=== PATIENT | female | born 1985 | race Caucasian/White ===

== ENCOUNTER 2016-04-26 06:41 | Day surgery (SDC) | payer OTHER ==
[~2016-04-26 06:41] MED LIST: ACETAMINOPHEN 500 MG TABLET PO PRN; HYDROmorphone HCL 2 MG/ML VIAL IV PRN; MAG HYDROX/ALUMINUM HYD/SIMETH 30 ML UDC PO PRN; MAGNESIUM HYDROXIDE 30 ML UDC PO PRN; ONDANSETRON HCL/PF 2 MG/ML VIAL IV PRN; PROMETHAZINE HCL 25 MG in DEXTROSE 5 % IN WATER 50 ML IV PRN; RINGERS SOLUTION,LACTATED 1,000 ML IV PRN; ROPIVACAINE HCL/PF 40 MG in NORMAL SALINE 16 ML IJ PRN; ZOLPIDEM TARTRATE 5 MG TABLET PO PRN; ceFAZolin SODIUM 1 GM VIAL IV PRN; diphenhydrAMINE HCL 50 MG/ML VIAL IV PRN; oxyCODONE HCL/ACETAMINOPHEN 1 TAB TABLET PO PRN
--- OUTSIDE RECORDS SUMMARY | 2016-04-26 06:44 | XMS REPORT | Continuity of Care Document ---
:1985 Author Organization [facility] ([facility]) [place] [address] Phone [phone] Care Team Providers Name Role Phone Provider, No-Primary Care Primary Care Provider Unavailable Source Comments This disclosure is being made pursuant to the Care Everywhere program, applicable federal and state laws, and may not contain all informaitonavailable regarding this patient.[facility] ([facility]) Active Allergies and Adverse Reactions Allergen Noted Date Severity Reactions Comments Codeine 11/26/2012 Nausea & Vomiting Penicillins 11/26/2012 Anaphylactic Shock Sulfa (Sulfonamide Antibiotics) 11/26/2012 Urticaria (Hives) Tramadol 06/09/2014 Seizure Current Medications Prescription Sig. Disp. Refills Start Date End Date Status naproxen 500 mg tablet Take 500 mg by mouth Active 2 times daily with meals. Active Problems No known active problems Social History Tobacco Use Types Packs/Day Years Used Date Light Tobacco Smoker 15 Tobacco Cessation:Ready to Quit: Yes; Counseling Given: Yes Comments: Alcohol Use Drinks/Week oz/Week Comments Yes Last Filed Vital Signs Vital Sign Reading Time Taken Blood Pressure 116/69 06/09/2014 3:58 PM CDT Pulse 76 06/09/2014 3:58 PM CDT Temperature 37 C (98.6 F) 06/09/2014 3:58 PM CDT Respiratory Rate 16 11/25/2012 11:31 PM CDT Height 1.689 m (5' 6.5") 06/09/2014 3:58 PM CDT Weight 92.08 kg (203 lb) 06/09/2014 3:58 PM CDT Body Mass Index 32.28 06/09/2014 3:58 PM CDT Oxygen Saturation 100% 11/25/2012 11:31 PM CDT Plan of Care Health Maintenance Due Date Last Done Comments Hepatitis B Vaccine (1 of 3 - Primary 1984 Series) Tdap Vaccine 05/25/1995 Lipid Disorder Screening 2002 MMR Vaccine 2002 Td Vaccine 2002 Varicella Vaccine (1 of 2 - Adult - No 2002 Evidence of Immunity) Pneumococcal Vaccine (1 of 1 - PPSV23) 05/25/2003 Cervical Cancer Screening 2014 08/13/2003, 11/27/2002 Influenza Vaccine: Seasonal (#1) 10/10/2015 Results from Last 3 Months Not on file
[2016-04-26] MEDS ORDERED: ALBUTEROL SULFATE 2.5 MG/0.5 ML VIAL.NEB IH ONE (07:27)
[2016-04-26] MEDS ORDERED: DEXTROSE 5%-0.5 NORMAL SALINE 1,000 ML IV ONE ×2 (08:15→09:40)
[2016-04-26] MEDS ORDERED: BUPIVACAINE HCL/EPINEPHRINE 50 ML VIAL IJ ONE (08:40)
[2016-04-26] MEDS ORDERED: diphenhydrAMINE HCL 50 MG/ML VIAL IV PRN (11:10)
[2016-04-26] MEDS ORDERED: NALOXONE HCL 0.4 MG/ML VIAL IV PRN (11:10)
[2016-04-26] MEDS ORDERED: HYDROmorphone HCL 2 MG/ML VIAL IV PRN (11:10)
[2016-04-26] MEDS ORDERED: PROMETHAZINE HCL 12.5 MG in DEXTROSE 5 % IN WATER 50 ML IV PRN ×2 (11:10)
[2016-04-26] MEDS ORDERED: ONDANSETRON HCL/PF 2 MG/ML VIAL IV PRN (11:10)
--- NOTE | 2016-04-26 11:26 | OR ---
Operative Report - Dictated Report Narrative: Date: 04/26/2016 Physician: Kayden Clarke M.D. Fiberglass Tube Molder: Raoul Mancera PA-C Preoperative diagnosis: Left Knee chronic patellar instability Postoperative diagnosis: Left knee chronic patellar instability Procedure: Left knee arthroscopy with chondroplasty of the lateral femoral condyle, medial patellofemoral ligament reconstruction with semi-tendinosis allograft Anesthesia: Spinal Plus local Complications: None Estimated blood loss: Minimal Tourniquet time: None Specimens: None Retained implants: Q-fix 1.8 mm all suture anchors 2, Mancera and nephew 7 x 25 mm PEEK interference screw Drains: None Indications: Bessie Is a 30 year-old email who has been followed in my clinic with complaints of knee pain consistent with suspected chronic patellar instability. Physical exam and diagnostic imaging were consistent with these complaints and concern for chronic lateral instability of the patella. Conservative measures have failed including, but not limited to, passage of time, activity modification, medications, and injections. The risks, benefits, and alternatives were discussed in clinic. The risks being , bleeding, infection, blood clots, nerve, tendon, ligament, blood vessel injury, persistent pain, arthrosis, need for additional procedures, and persistent symptoms. Consent was obtained in the clinic. Procedure: After marking the correct extremity in the preoperative holding area, a timeout was performed in the operating room. IV antibiotics consisting of 2 g of Ancef were administered prior to the procedure. A well-padded tourniquet was applied to the operative upper thigh. The leg was prepped and draped in a standard sterile fashion. 0.5% Marcaine with epinephrine was infused into the projected portal sites as well as the intra-articular space. A tessie incision was made for inferior lateral portal. A blunt trocar and cannula was introduced into the knee. The suprapatellar pouch revealed no loose bodies. The medial patella facet showed mild grade 1 chondral changes. The lateral patella facet showed grade 1 and scattered grade 2 chondral changes. The trochlea showed mild grade 1 chondral changes. Under arthroscopic visualization, the patella was able to be completely laterally dislocated with the knee in full extension and at 30 of flexion. The medial gutter revealed no loose bodies. The medial joint space was then entered utilizing a lateral post and valgus stress. A spinal needle was utilized for guidance into placement of an anterior medial portal. This was placed just superior to the medial meniscus ensuring that we could reach the posterior aspect of the medial joint space. A tessie incision was made in the site, and the probe was introduced to the knee. The medial joint space was examined, and the medial femoral condyle showed no chondral changes. The medial tibial plateau showed no chondral changes. The medial meniscus was intact without any tears. The notch was then examined, and the ACL was noted to be intact. The PCL was noted to be intact. The lateral joint space was then examined using a varus force in the figure 4 position. Lateral femoral condyle showed no chondral changes. Lateral tibial plateau showed a loose chondral flap just lateral posterior to the insertion of the anterior horn of the lateral meniscus. The lateral meniscus showed no tears. The lateral gutter showed loosebodies. Having identified the surgical pathology, a shaver was utilized in order to debride the lateral femoral condyle. Once it was felt that we adequately addressed the pathology, the knee was thoroughly irrigated. The fluid was evacuated ensuring that we have removed all meniscal, chondral, and any other loose bodies. A final evaluation of the joint showed no additional pathology. The fluid was then evacuated of the knee, and the trocar and camera were removed from the joint. We then turned our attention to the patella. An approximately 4 cm incision was made at the medial border of the patella. Combination of electrocautery and blunt dissection was carried down to the level of the medial retinaculum. This was incised along the medial patellar border with a sharp knife to reveal the medial edge of the patella. Layer 2 was identified and also sharply dissected from the medial edge of the patella to reveal layer 3, the joint capsule. The medial edge of the patella was prepared with Ronguer creating a shallow bony trough. 21.8 mm Q fix all suture anchors were placed in the medial aspect of the patella approximately 1 cm apart. Attention was then turned to the back table to our semitendinosus allograft. Both ends of the tendon were whipstitched with a #2 FiberWire and the ends were debrided down with tenotomy scissors. We then placed the free ends of the tendon through a sizer and these slid easily through a 7 mm graft sizer. The graft was then placed on the ACL tensioner and covered with a moist sponge. Attention was turned back to the medial aspect of the knee. Fluoroscopy was used to roughly approximate the site of our medial femoral tunnel and a 4 cm longitudinal incision was made over the medial aspect of the medial femoral condyle. Comminution of electrocautery and blunt dissection was carried down through the subcutaneous fat to the level of the fascia. Using fluoroscopy, a perfect lateral image of the knee was obtained and a Beath pin was placed directly at Shottle's point, the origin of the [place] medial patellofemoral ligament. The Beath pin was then driven across the distal femur slightly proximal and anteriorly and out the lateral side of the knee. Sharp dissection around her Beath pin was carried down to the level of the medial femoral condyle. The Beath pin was overreamed with a 7 mm acorn reamer to a depth of 50 mm across the distal femur. Attention was turned back to our semitendinosus allograft. This was brought from the back table and looped with the free ends even with each other which was then clamped with a hemostat. The looped end was then centered over the prepared medial border of the patella and tied down into the bony trough using the previously placed all suture anchors. A hemostat was then advanced between layers 1 and 2 of the medial retinaculum starting at the femoral tunnel site and coming into the wound at the medial border of the patella. The sutures from the free ends of the semitendinosus allograft were then grabbed and the graft was tunneled down between layers 1 and 2 of the medial retinaculum. The free suture ends were then passed through the eyelet of the Beath pin and the Beath pin was pulled out laterally advancing the graft into the femoral tunnel. The graft was then appropriately tensioned with the knee in approximately 30 of flexion giving us between 5 and 10 mm of lateral patellar subluxation before tightening of our graft. The knee was taken through a full range of motion and the patella was noted to have smooth gliding in the trochlear groove. With the graft held at the appropriate tension and the knee in 30 of flexion a 7 x 25 mm interference screw was placed in the medial femoral tunnel to secure our graft. We once again checked the tension of our graft and placed the knee through a full range of motion and the patella was noted to have smooth gliding and excellent check-rein function of our graft. At this point the wounds were copiously irrigated with normal saline. Vicryl was used to close the retinacular layer at the medial border of the patella incorporating our graft into this repair. The skin edges of our incisions were then anesthetized with half percent Marcaine with epinephrine. The wounds were then closed in layered fashion using interrupted 0 Vicryl for the deep subcutaneous fat followed by 3-0 Vicryl in an interrupted deep dermal fashion. The skin and portal sites were closed with interrupted 4-0 nylon after placing 20 mL of 0.2% ropivacaine into the joint. Dressings consisting of Xeroform, 4 x 4, ABD, soft roll, Mundo, and ice-man dressing were applied. The patient was then placed in a hinged knee brace set from 0-30 of flexion. All sponge, needle, blade, and instrument counts were correct prior to closing the wounds. The patient was awoken and transferred to the post-anesthesia care unit in stable condition.
[2016-04-26] MEDS ORDERED: oxyCODONE HCL/ACETAMINOPHEN 1 TAB TABLET PO ONE (13:44)
[2016-04-26 14:20] VITALS: BP 126/66
[2016-04-26] MEDS ORDERED: SENNOSIDES/DOCUSATE SODIUM 1 TAB TABLET PO SCH (21:00)
== END 2016-04-26 06:42 | disposition home or self-care (01) ==
LOC: AMB 06:41
PROVIDERS: ATTEND Orthopaedic Surgery
PROC: 0LUR07Z Supplement Left Knee Tendon with Autologous Tissue Substitute, Open Approach (ICD-10-PCS; 2016-04-26)
PROC: 0SBD4ZZ Excision of Left Knee Joint, Percutaneous Endoscopic Approach (ICD-10-PCS; principal; 2016-04-26 08:00)
DX: M23.52 Chronic instability of knee, left knee (principal); M23.42 Loose body in knee, left knee; J45.909 Unspecified asthma, uncomplicated; G40.909 Epilepsy, unspecified, not intractable, without status epilepticus; F17.210 Nicotine dependence, cigarettes, uncomplicated; Z68.35 Body mass index [BMI] 35.0-35.9, adult

== ENCOUNTER 2016-04-27 19:56 | Emergency (ER) | payer OTHER ==
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
--- OUTSIDE RECORDS SUMMARY | 2016-04-27 22:24 | XMS REPORT | Continuity of Care Document ---
:1985 Author Organization [facility] ([facility]) [place] [address] Phone [phone] Care Team Providers Name Role Phone Provider, No-Primary Care Primary Care Provider Unavailable Source Comments This disclosure is being made pursuant to the Care Everywhere program, applicable federal and state laws, and may not contain all informaitonavailable regarding this patient.[facility] ([facility]) Active Allergies and Adverse Reactions Allergen Noted [...]
[2016-04-27] MEDS ORDERED: HYDROmorphone HCL 1 MG/ML DISP.SYRIN ONE (22:25)
[2016-04-27] MEDS ORDERED: METOCLOPRAMIDE HCL 5 MG/ML VIAL ONE (22:26)
[2016-04-27] MEDS: METOCLOPRAMIDE HCL 5 MG/ML VIAL IM ONE (22:28)
[2016-04-27] MEDS: HYDROmorphone HCL 1 MG/ML DISP.SYRIN IM ONE (22:29)
[2016-04-28 06:23] VITALS: BP 107/63
== END 2016-04-27 23:40 | disposition home or self-care (01) ==
LOC: ER 19:56
DX: G89.18 Other acute postprocedural pain (principal); R11.2 Nausea with vomiting, unspecified; F17.210 Nicotine dependence, cigarettes, uncomplicated